=== PATIENT | female | born 1990 | race Caucasian/White ===

== ENCOUNTER → 2024-03-08 18:06 | Outpatient (REF) | payer OTHER, SELFPAY | LOC: MRI 3T 18:06 | PROVIDERS: ATTENDING PHYSICIAN Nurse Practitioner Family; FAMILY PHYSICIAN Internal Medicine | DX: Z00.00 Encounter for general adult medical examination without abnormal findings (principal); R44.2 Other hallucinations; R42 Dizziness and giddiness | CPT/HCPCS: 70553; A9575 ==